=== PATIENT | female | born 1960 | race Asian ===

== ENCOUNTER 2016-10-14 20:30 | Emergency (ER) | payer MEDICARE, OTHER ==
[~2016-10-14 20:30] MED LIST: ADVAIR 2501 DISK W/D IH; ADVAIR 25028 BLISTER INH; ALBUTEROL INH 0.3 ML AERO NEB; AMBIEN10 M1 PO; AMBIEN10 MG PO; ATIVAN1 M2 PO; BABY ASPIRIN81 MG PO; CELEXA20 M2 PO; CELEXA20 MG PO; COMPAZINE10 M PO; COZAAR100 M1 PO; CYCLOBENZAPRINE5 M1 PO; FLEXERIL10 MG PO; HYDROCHLOROTHIA25 M1 PO; LOMOTIL 2.5-0.1 EACH PO; LOMOTIL TABLET1 TAB; LORAZEPAM1 MG; LORAZEPAM1 MG PO; LOSARTAN-HCTZ1 EAC5 PO; LUNESTA1 MG; LUNESTA3 MG PO; MELOXICAM7.5 M1 PO; METFORMIN HCL1000 M2 PO; METFORMIN HCL1000 MG PO; METOPROLOL SUCC50 M1 PO; NADOLOL40 MG PO; NEURONTIN300 MG PO; NORVASC10 M2 PO; NORVASC5 M2 PO; OXYCODONE HCL5 MG PO; OXYCONTIN15 MG PO; OXYCONTIN80 MG; PEN-VEE K500 MG PO; PEPCID20 M1 PO; PERCOCET 5-3251 EACH PO; POTASSIUM CHLO20 ME2 PO; PREMARIN0.625 MG PO; PREMARIN0.625 MG/T PO; PRILOSEC OTC20 M1 PO; PRILOSEC20 MG PO; PROAIR HFA8.5 GM INH; SIMVASTATIN20 M1 PO; TOPAMAX100 M2 PO; TOPAMAX100 MG PO; TOPROL XL100 M1 PO; TRIAMTERENE/HYDR1 EA PO; TYLENOL650 MG PO; ULTRAM50 MG PO; WELLBUTRIN SR150 MG; ZOFRAN ODT4 MG/UDTAB PO; ZOLOFT50 MG PO
[2016-10-14] MEDS ORDERED: PEPCID20 M1 PO (22:14)
[2016-10-14 22:51] LABS: BASO % 0.1 % (0-2); EOSINOPHIL ABSOLUTE COUNT 0.1 tho/cmm (0.0-0.7); HCT-HEMATOCRIT 35.9 % (34.0-49.0); HGB-HEMOGLOBIN 11.9 gm/dl (12.0-15.5); IMMATURE GRANULOCYTES ABSOLUTE 0.02 tho/cmm (0-0.03); IMMATURE GRANULOCYTES PERCENT 0.2 % (0-0.3); LYMPH % 12.1 % (20-45); MCH (MEAN CORPUSCULAR HGB) 29.8 pg (28.0-32.0); MCHC MEAN CORPUSCULAR HGB CONC 33.1 % (32.0-36.0); MONO % 7.7 % (0-12); MONOCYTE ABSOLUTE COUNT 0.6 tho/cmm (0.0-1.2); NEUTROPHIL ABSOLUTE COUNT 6.4 tho/cmm (1.6-8.0); NEUTROPHIL-AUTOMATED 6.4 tho/cmm (1.6-8.0); NEUTROPHILS % 78.9 % (40-80); PLATELET COUNT 285 tho/cmm (150-450); RED BLOOD COUNT 3.99 mil/cmm (4.00-5.20); RED CELL DISTRIBUTION WIDTH 13.1 % (12.4-16.4); WHITE BLOOD COUNT 8.1 tho/cmm (4.0-10.0)
[2016-10-14 23:06] LABS: ALB/GLOB RATIO 0.7 (0.8-2.0); ALBUMIN 3.3 g/dl (3.5-5.0); ALKALINE PHOSPHATASE 71 U/L (33-138); AST/SGOT 15 U/L (10-40); BILIRUBIN,TOTAL 0.5 mg/dl (0-1.5); BLOOD UREA NITROGEN 18 mg/dl (6-24); CALCIUM 8.7 mg/dl (8.5-10.5); CARBON DIOXIDE-VENOUS 27 mmol/L (22-32); CHLORIDE 100 mmol/l (96-110); CREATININE 0.68 mg/dl (0.50-1.10); GLUCOSE 110 mg/dL (70-110); LIPASE 219 U/L (73-393); SODIUM 139 mmol/L (135-145); eGFR VALUE FOR BLACK >90 mL/Min
[2016-10-14 23:08] LABS: ALT/SGPT 9 U/L (12-78); ANION GAP 15 mmol/L (0-20)
[2016-10-14] MEDS ORDERED: ZOFRAN ODT4 MG PO (23:23)
[2016-10-14] MEDS ORDERED: PRILOSEC OTC20 M1 PO (23:23)
== END 2016-10-15 00:25 ==
LOC: EDMED 20:30
PROVIDERS: Emergency Medicine
DX: K27.9 Peptic ulcer, site unspecified, unspecified as acute or chronic, without hemorrhage or perforation (principal); I10 Essential (primary) hypertension
CPT/HCPCS: J2405; J7030

== ENCOUNTER 2016-10-21 02:43 | Inpatient (IN) | payer MEDICARE, OTHER ==
[~2016-10-21 02:43] MED LIST changes: +ZOFRAN ODT4 MG PO
[2016-10-21] MEDS ORDERED: PROAIR HFA8.5 GM (03:12)
[2016-10-21] MEDS ORDERED: TENORMIN100 M1 PO (03:13)
[2016-10-21] MEDS ORDERED: ESOMEPRAZOLE MA40 MG PO (03:13)
[2016-10-21] MEDS ORDERED: OMEPRAZOLE20 M3 PO (03:14)
[2016-10-21] MEDS ORDERED: PREDNISONE10 M1 (03:14)
[2016-10-21 03:28] LABS: BASO % 0.2 % (0-2); EOS % 2.6 % (0-7); EOSINOPHIL ABSOLUTE COUNT 0.3 tho/cmm (0.0-0.7); IMMATURE GRANULOCYTES ABSOLUTE 0.05 tho/cmm (0-0.03); IMMATURE GRANULOCYTES PERCENT 0.5 % (0-0.3); LYMPH ABSOLUTE COUNT 2.1 tho/cmm (0.8-4.5); MCV (MEAN CELL VOLUME) 90.6 fl (82.0-96.0); MEAN PLATELET VOLUME 8.6 cmc (9.4-12.4); MONO % 6.5 % (0-12); MONOCYTE ABSOLUTE COUNT 0.7 tho/cmm (0.0-1.2); NEUTROPHIL ABSOLUTE COUNT 6.9 tho/cmm (1.6-8.0); NEUTROPHIL-AUTOMATED 6.9 tho/cmm (1.6-8.0); NEUTROPHILS % 69.2 % (40-80); PLATELET COUNT 200 tho/cmm (150-450); RED CELL DISTRIBUTION WIDTH 13.9 % (12.4-16.4)
[2016-10-21 03:30] LABS: HCT-HEMATOCRIT 15.4 % (34.0-49.0); HGB-HEMOGLOBIN 4.9 gm/dl (12.0-15.5); MCH (MEAN CORPUSCULAR HGB) 28.8 pg (28.0-32.0); MCHC MEAN CORPUSCULAR HGB CONC 31.8 % (32.0-36.0)
[2016-10-21 03:48] LABS: PROTHROMBIN TIME 11.5 SECONDS (9.0-13.6)
[2016-10-21 04:02] LABS: ALBUMIN 1.9 g/dl (3.5-5.0); ALT/SGPT 17 U/L (12-78); BILIRUBIN,TOTAL 0.1 mg/dl (0-1.5); BLOOD UREA NITROGEN 29 mg/dl (6-24); CALCIUM 7.2 mg/dl (8.5-10.5); CARBON DIOXIDE-VENOUS 23 mmol/L (22-32); CHLORIDE 115 mmol/l (96-110); CREATININE 0.75 mg/dl (0.50-1.10); GLUCOSE 153 mg/dL (70-110); LIPASE 223 U/L (73-393); SODIUM 145 mmol/L (135-145); eGFR VALUE FOR BLACK >90 mL/Min
[2016-10-21 04:03] LABS: ALB/GLOB RATIO 0.8 (0.8-2.0); ALKALINE PHOSPHATASE 34 U/L (33-138)
[2016-10-21 04:11] LABS: ANION GAP 11 mmol/L (0-20); AST/SGOT 27 U/L (10-40); POTASSIUM 3.6 mmol/L (3.7-5.1)
[2016-10-21 06:42] LABS: C-REACTIVE PROTEIN 0.8 mg/dl (0-0.9); PHOSPHOROUS 3.1 mg/dl (2.5-4.9)
[2016-10-21 06:52] LABS: PROCALCITONIN <0.05 ng/ml (0.05-0.09)
[2016-10-21 08:38] LABS: HGB-HEMOGLOBIN 11.3 gm/dl (12.0-15.5)
[2016-10-22 04:11] LABS: BASO % 0.4 % (0-2); EOS % 3.5 % (0-7); EOSINOPHIL ABSOLUTE COUNT 0.2 tho/cmm (0.0-0.7); HGB-HEMOGLOBIN 9.7 gm/dl (12.0-15.5); IMMATURE GRANULOCYTES ABSOLUTE 0.01 tho/cmm (0-0.03); IMMATURE GRANULOCYTES PERCENT 0.2 % (0-0.3); LYMPH % 34.4 % (20-45); LYMPH ABSOLUTE COUNT 1.9 tho/cmm (0.8-4.5); MONO % 7.5 % (0-12); MONOCYTE ABSOLUTE COUNT 0.4 tho/cmm (0.0-1.2); PLATELET COUNT 137 tho/cmm (150-450); RED CELL DISTRIBUTION WIDTH 15.7 % (12.4-16.4); WHITE BLOOD COUNT 5.5 tho/cmm (4.0-10.0)
[2016-10-22 04:17] LABS: HCT-HEMATOCRIT 28.1 % (34.0-49.0); MCH (MEAN CORPUSCULAR HGB) 29.4 pg (28.0-32.0); MCHC MEAN CORPUSCULAR HGB CONC 34.5 % (32.0-36.0); MCV (MEAN CELL VOLUME) 85.4 fl (82.0-96.0); RED BLOOD COUNT 3.29 mil/cmm (4.00-5.20)
[2016-10-22 04:26] LABS: ALB/GLOB RATIO 0.9 (0.8-2.0); ALBUMIN 2.1 g/dl (3.5-5.0); ALKALINE PHOSPHATASE 37 U/L (33-138); ALT/SGPT 14 U/L (12-78); ANION GAP 12 mmol/L (0-20); AST/SGOT 16 U/L (10-40); BLOOD UREA NITROGEN 11 mg/dl (6-24); CARBON DIOXIDE-VENOUS 24 mmol/L (22-32); CHLORIDE 115 mmol/l (96-110); CREATININE 0.55 mg/dl (0.50-1.10); FERRITIN 85 ng/ml (8-250); GLUCOSE 91 mg/dL (70-110); POTASSIUM 3.2 mmol/L (3.7-5.1); SODIUM 148 mmol/L (135-145); eGFR VALUE FOR BLACK >90 mL/Min
[2016-10-22 04:27] LABS: IRON 57 ug/dl (37-170); IRON BINDING CAPACITY 180 ug/dl (250-450)
[2016-10-22 04:46] LABS: BILIRUBIN,TOTAL 0.3 mg/dl (0-1.5)
[2016-10-22 05:09] LABS: PARTIAL THROMBOPLASTIN TIME 28 SECONDS (22-38)
[2016-10-22 12:31] LABS: HCT-HEMATOCRIT 30.3 % (34.0-49.0); HGB-HEMOGLOBIN 10.3 gm/dl (12.0-15.5); MCV (MEAN CELL VOLUME) 85.4 fl (82.0-96.0); RED CELL DISTRIBUTION WIDTH 15.6 % (12.4-16.4)
[2016-10-22 20:21] LABS: HGB-HEMOGLOBIN 10.3 gm/dl (12.0-15.5); RED CELL DISTRIBUTION WIDTH 15.5 % (12.4-16.4)
[2016-10-23 05:24] LABS: ANION GAP 10 mmol/L (0-20); BLOOD UREA NITROGEN 3 mg/dl (6-24); CALCIUM 7.7 mg/dl (8.5-10.5); CARBON DIOXIDE-VENOUS 29 mmol/L (22-32); CHLORIDE 108 mmol/l (96-110); CREATININE 0.46 mg/dl (0.50-1.10); GLUCOSE 96 mg/dL (70-110); MAGNESIUM 1.8 mg/dl (1.3-2.6); PHOSPHOROUS 2.6 mg/dl (2.5-4.9); SODIUM 144 mmol/L (135-145); eGFR VALUE FOR BLACK >90 mL/Min
[2016-10-23 05:26] LABS: BASO % 0.2 % (0-2); EOS % 3.5 % (0-7); EOSINOPHIL ABSOLUTE COUNT 0.2 tho/cmm (0.0-0.7); HGB-HEMOGLOBIN 10.6 gm/dl (12.0-15.5); IMMATURE GRANULOCYTES ABSOLUTE 0.02 tho/cmm (0-0.03); IMMATURE GRANULOCYTES PERCENT 0.3 % (0-0.3); LYMPH % 20.3 % (20-45); LYMPH ABSOLUTE COUNT 1.2 tho/cmm (0.8-4.5); MCH (MEAN CORPUSCULAR HGB) 29.1 pg (28.0-32.0); MCHC MEAN CORPUSCULAR HGB CONC 34.2 % (32.0-36.0); MCV (MEAN CELL VOLUME) 85.2 fl (82.0-96.0); MEAN PLATELET VOLUME 9.1 cmc (9.4-12.4); MONO % 9.3 % (0-12); MONOCYTE ABSOLUTE COUNT 0.6 tho/cmm (0.0-1.2); NEUTROPHILS % 66.4 % (40-80); PLATELET COUNT 190 tho/cmm (150-450); RED BLOOD COUNT 3.64 mil/cmm (4.00-5.20); RED CELL DISTRIBUTION WIDTH 15.3 % (12.4-16.4)
[2016-10-23 05:27] LABS: HCT-HEMATOCRIT 31.1 % (34.0-49.0); HGB-HEMOGLOBIN 10.6 gm/dl (12.0-15.5); MCV (MEAN CELL VOLUME) 85.4 fl (82.0-96.0); RED CELL DISTRIBUTION WIDTH 15.2 % (12.4-16.4)
[2016-10-23 05:29] LABS: POTASSIUM 2.7 mmol/L (3.7-5.1)
[2016-10-23 12:27] LABS: HCT-HEMATOCRIT 32.6 % (34.0-49.0); HGB-HEMOGLOBIN 11.3 gm/dl (12.0-15.5); MCV (MEAN CELL VOLUME) 84.9 fl (82.0-96.0); RED CELL DISTRIBUTION WIDTH 15.1 % (12.4-16.4)
[2016-10-23 20:39] LABS: HCT-HEMATOCRIT 30.6 % (34.0-49.0); HGB-HEMOGLOBIN 10.4 gm/dl (12.0-15.5); RED CELL DISTRIBUTION WIDTH 15.1 % (12.4-16.4)
[2016-10-24 03:35] LABS: BASO % 0.2 % (0-2); EOS % 4.8 % (0-7); EOSINOPHIL ABSOLUTE COUNT 0.3 tho/cmm (0.0-0.7); HCT-HEMATOCRIT 30.6 % (34.0-49.0); HGB-HEMOGLOBIN 10.3 gm/dl (12.0-15.5); IMMATURE GRANULOCYTES ABSOLUTE 0.02 tho/cmm (0-0.03); IMMATURE GRANULOCYTES PERCENT 0.3 % (0-0.3); LYMPH % 19.7 % (20-45); LYMPH ABSOLUTE COUNT 1.2 tho/cmm (0.8-4.5); MCH (MEAN CORPUSCULAR HGB) 29.1 pg (28.0-32.0); MCHC MEAN CORPUSCULAR HGB CONC 33.7 % (32.0-36.0); MCV (MEAN CELL VOLUME) 86.4 fl (82.0-96.0); MEAN PLATELET VOLUME 9.2 cmc (9.4-12.4); MONOCYTE ABSOLUTE COUNT 0.6 tho/cmm (0.0-1.2); NEUTROPHIL ABSOLUTE COUNT 3.8 tho/cmm (1.6-8.0); NEUTROPHIL-AUTOMATED 3.8 tho/cmm (1.6-8.0); PLATELET COUNT 208 tho/cmm (150-450); RED BLOOD COUNT 3.54 mil/cmm (4.00-5.20); RED CELL DISTRIBUTION WIDTH 15.2 % (12.4-16.4); WHITE BLOOD COUNT 5.9 tho/cmm (4.0-10.0)
[2016-10-24 04:14] LABS: ANION GAP 10 mmol/L (0-20); BLOOD UREA NITROGEN 11 mg/dl (6-24); CALCIUM 7.7 mg/dl (8.5-10.5); CARBON DIOXIDE-VENOUS 26 mmol/L (22-32); CHLORIDE 111 mmol/l (96-110); CREATININE 0.63 mg/dl (0.50-1.10); GLUCOSE 93 mg/dL (70-110); POTASSIUM 3.9 mmol/L (3.7-5.1); SODIUM 143 mmol/L (135-145); eGFR VALUE FOR BLACK >90 mL/Min
[2016-10-24 18:43] LABS: URINE BILIRUBIN NEGATIVE (NEG); URINE BLOOD NEGATIVE (NEG); URINE GLUCOSE (UA) NEGATIVE (NEG); URINE KETONE NEGATIVE (NEG); URINE NITRITE NEGATIVE (NEG); URINE PROTEIN NEGATIVE (NEG)
[2016-10-24 18:51] LABS: URINE LEUKOCYTE ESTERASE POSITIVE (NEG); URINE PH 6.5 (5.0-8.0)
[2016-10-24 18:52] LABS: URINE APPEARANCE CLEAR; URINE COLOR YELLOW
[2016-10-24 18:58] LABS: URINE EPITHELIAL CELLS 0-2 /[HPF] (0-10); URINE RBC 0 /[HPF] (0-5)
[2016-10-24 20:13] LABS: HCT-HEMATOCRIT 31.3 % (34.0-49.0); HGB-HEMOGLOBIN 10.6 gm/dl (12.0-15.5); MCV (MEAN CELL VOLUME) 87.4 fl (82.0-96.0); RED CELL DISTRIBUTION WIDTH 15.3 % (12.4-16.4)
[2016-10-26 06:54] LABS: ANION GAP 9 mmol/L (0-20); BLOOD UREA NITROGEN 17 mg/dl (6-24); CALCIUM 7.9 mg/dl (8.5-10.5); CARBON DIOXIDE-VENOUS 28 mmol/L (22-32); CHLORIDE 111 mmol/l (96-110); CREATININE 0.61 mg/dl (0.50-1.10); GLUCOSE 85 mg/dL (70-110); POTASSIUM 4.1 mmol/L (3.7-5.1); SODIUM 144 mmol/L (135-145); eGFR VALUE FOR BLACK >90 mL/Min
[2016-10-26] MEDS ORDERED: COZAAR100 M1 PO (12:57)
[2016-10-26] MEDS ORDERED: PROTONIX20 M2 PO (13:00)
[2016-10-26] MEDS ORDERED: NICODERM CQ1 EAC2 TD (13:00)
[2016-10-26] MEDS ORDERED: ATIVAN0.5 M1 PO (13:01)
[2016-10-26] MEDS ORDERED: ZOFRAN4 M2 PO (13:01)
== END 2016-10-26 13:30 | DRG 377 ==
LOC: EDMED 02:43 → EMR2 05:56 → CCU 06:56 → 5WE 10-23 15:30
PROVIDERS: Emergency Medicine; Hospitalist; Internal Medicine; Internal Medicine Gastroenterology; Registered Nurse; ADMIT Hospitalist
PROC: 0DB68ZX Excision of Stomach, Via Natural or Artificial Opening Endoscopic, Diagnostic (ICD-10-PCS; principal; 2016-10-21)
PROC: 02HV33Z Insertion of Infusion Device into Superior Vena Cava, Percutaneous Approach (ICD-10-PCS; 2016-10-21)
PROC: 30243N1 Transfusion of Nonautologous Red Blood Cells into Central Vein, Percutaneous Approach (ICD-10-PCS; 2016-10-21)
DX: K25.4 Chronic or unspecified gastric ulcer with hemorrhage (principal); R57.1 Hypovolemic shock; K31.6 Fistula of stomach and duodenum; D62 Acute posthemorrhagic anemia; R00.1 Bradycardia, unspecified; T44.7X5A Adverse effect of beta-adrenoreceptor antagonists, initial encounter; F17.210 Nicotine dependence, cigarettes, uncomplicated; E87.6 Hypokalemia; E83.42 Hypomagnesemia; K21.9 Gastro-esophageal reflux disease without esophagitis; Z85.41 Personal history of malignant neoplasm of cervix uteri; Z88.0 Allergy status to penicillin; Z88.1 Allergy status to other antibiotic agents; Z88.8 Allergy status to other drugs, medicaments and biological substances; F41.9 Anxiety disorder, unspecified; G47.00 Insomnia, unspecified; R55 Syncope and collapse; E11.9 Type 2 diabetes mellitus without complications; J45.909 Unspecified asthma, uncomplicated; F32.9 Major depressive disorder, single episode, unspecified; Z23 Encounter for immunization
CPT/HCPCS: C1751; C9113; G0008; J1815; J2060; J2405; J3480; J7030; P9016